=== PATIENT | male | born 1980 | race Caucasian/White ===

== ENCOUNTER → 2024-04-02 10:33 | Outpatient (REF) | payer SELFPAY | LOC: RAD 10:33 | PROVIDERS: ATTENDING PHYSICIAN Nurse Practitioner Family; FAMILY PHYSICIAN Internal Medicine | DX: Z76.89 Persons encountering health services in other specified circumstances (principal); Z86.39 Personal history of other endocrine, nutritional and metabolic disease | CPT/HCPCS: 75571 ==

== ENCOUNTER 2024-10-30 06:20 | Day surgery (SDC) | payer BC, SELFPAY | END 2024-10-30 16:10 | disposition home or self-care (01) | LOC: GI 06:20 | PROVIDERS: ATTENDING PHYSICIAN Internal Medicine Gastroenterology | DX: Z12.11 Encounter for screening for malignant neoplasm of colon (principal); K64.8 Other hemorrhoids | CPT/HCPCS: G0121 ==